=== PATIENT | male | born 1995 | race Caucasian/White ===

== ENCOUNTER 2017-07-06 09:36 | Outpatient (CLI) | payer MEDICAID, OTHER ==
[~2017-07-06 09:36] MED LIST: HYDR-569 PO; IBUP-1984 PO
[2017-07-06 09:39] VITALS: BP 126/76
== END 2017-07-06 10:15 | disposition home or self-care (01) ==
LOC: ORTHO 09:36
PROVIDERS: ATTEND Nurse Practitioner Family
DX: S62.346A Nondisplaced fracture of base of fifth metacarpal bone, right hand, initial encounter for closed fracture (principal); S60.222A Contusion of left hand, initial encounter; F17.210 Nicotine dependence, cigarettes, uncomplicated; F12.90 Cannabis use, unspecified, uncomplicated; X58.XXXA Exposure to other specified factors, initial encounter; Y93.89 Activity, other specified; Y92.89 Other specified places as the place of occurrence of the external cause; Y99.8 Other external cause status
CPT/HCPCS: 29125; 29260